=== PATIENT | female | born 1950 | race Two or more races ===

== ENCOUNTER 2025-02-12 11:42 | Outpatient (CLI) | payer OTHER ==
[2025-02-12 12:22] LABS: Hematocrit 37.5 % (36.0-46.0); Hemoglobin 13.0 g/dL (12.2-16.2); Mean Corpuscular Hemoglobin 30.8 pg (28.0-32.0); Mean Corpuscular Volume 88.6 fL (80.0-100.0); Nucleated Red Blood Cells % 0.1 %
[2025-02-12 12:31] LABS: Urine Protein, UAD Negative (Negative)
[2025-02-12 13:00] LABS: Alanine Aminotransferase 17 U/L (7-40); Albumin 4.2 g/dL (3.2-4.8); Alkaline Phosphatase 69 U/L (46-116); Anion Gap 9 (5-15); BUN/Creatinine Ratio 25.0 (10.0-20.0); Blood Urea Nitrogen 18 mg/dL (9-23); Calcium 9.2 mg/dL (8.7-10.4); Carbon Dioxide 27 mmol/L (20-31); Chloride 107 mmol/L (98-107); Potassium 4.2 mmol/L (3.5-5.1); Sodium 143 mmol/L (136-145); Total Protein 7.1 g/dL (5.7-8.2)
[2025-02-12 13:01] LABS: Bilirubin, Total 0.4 mg/dL (0.2-1.0); Glucose 140 mg/dL (74-106)
[2025-02-12 13:14] LABS: Triglycerides 107 mg/dL (< 150)
[2025-02-12 13:16] LABS: Cholesterol 131 mg/dL (< 200); HDL Cholesterol 50 mg/dL (40-59)
== END 2025-02-12 17:00 | disposition home or self-care (01) ==
LOC: LAB 11:42
PROVIDERS: ATTEND Nurse Practitioner
DX: I10 Essential (primary) hypertension (principal); E03.9 Hypothyroidism, unspecified; E78.5 Hyperlipidemia, unspecified; R73.9 Hyperglycemia, unspecified
CPT/HCPCS: 36415; 80053; 80061; 81001; 82306; 82607; 82746; 83036; 84443; 85025